=== PATIENT | female | born 1940 | race Caucasian/White ===

== ENCOUNTER 2016-12-08 09:30 | Outpatient (CLI) | payer MEDICARE ==
[~2016-12-08] VITALS: Ht 152.4 cm; Wt 79.4 kg
[~2016-12-08 09:30] MED LIST: ASPI81TA85 PO; BIOT1CAP2 PO; CENTTAB PO; CRAN250C2 PO; HYDR12.55 PO; LIDOCAINE 2% INJ 100 MG/5 ML SDV (FOR ANES.) As Ordered ONE; METO200T15 PO; NS 1,000 ML IV ONE; PRAV10TA PO; PROPOFOL 200 MG/20 ML VIAL As Ordered ONE; VITA100041 PO; VITATAB11 PO
--- NOTE | 2016-12-08 09:50 | ROOR ---
Patient Name: Doris Alvarez Procedure Date: 12/08/2016 9:27 AM Date of : 1940 Age: 76 Room: [facility] Gender: Female Note Status: Finalized Procedure: Total Colonoscopy to Cecum Indications: Screening for colorectal malignant neoplasm, Last colonoscopy: 2004 Providers: Zhao Powers MD Referring MD: ABBEY JEAN JR, MD Requesting Provider: Medicines: Monitored Anesthesia Care Complications: No immediate complications. Procedure: Pre-Anesthesia Assessment: - The heart rate, respiratory rate, oxygen saturations, blood pressure, adequacy of pulmonary ventilation, and response to care were monitored throughout the procedure. The Colonoscope was introduced through the anus and advanced to the cecum, identified by appendiceal orifice and ileocecal valve. The colonoscopy was performed without difficulty. The patient tolerated the procedure well. The quality of the bowel preparation was excellent. Findings: The perianal and digital rectal examinations were normal. Non-bleeding internal hemorrhoids were found during retroflexion. The hemorrhoids were small and Grade I (internal hemorrhoids that do not prolapse). Multiple small and large-mouthed diverticula were found in the recto-sigmoid colon, sigmoid colon and descending colon. The exam was otherwise without abnormality on direct and retroflexion views. Impression: - Non-bleeding internal hemorrhoids. - Diverticulosis in the recto-sigmoid colon, in the sigmoid colon and in the descending colon. - The examination was otherwise normal on direct and retroflexion views. - No specimens collected. - The exam was otherwise normal to the cecum. Recommendation: - Patient has a contact number available for emergencies. The signs and symptoms of potential delayed complications were discussed with the patient. Return to normal activities tomorrow. Written discharge instructions were provided to the patient. - High fiber diet. - Discharge patient to home. - Continue present medications. - Repeat colonoscopy for symptoms only. - Return to referring physician. - The findings and recommendations were discussed with the patient's family. Zhao Powers MD Zhao Powers MD 12/08/2016 9:50:20 AM This report has been signed electronically. Number of Addenda: 0 Note Initiated On: 12/08/2016 9:27 AM Estimated Blood Loss: Estimated blood loss: none.
[2016-12-08 10:10] VITALS: BP 145/79
== END 2016-12-08 10:20 | disposition home or self-care (01) ==
LOC: M OPP 09:30
PROVIDERS: ATTEND Internal Medicine Gastroenterology
DX: Z12.11 Encounter for screening for malignant neoplasm of colon (principal); K64.0 First degree hemorrhoids; K57.30 Diverticulosis of large intestine without perforation or abscess without bleeding; K21.9 Gastro-esophageal reflux disease without esophagitis; K62.5 Hemorrhage of anus and rectum; I10 Essential (primary) hypertension; E78.5 Hyperlipidemia, unspecified; M54.9 Dorsalgia, unspecified; Z78.0 Asymptomatic menopausal state; G47.8 Other sleep disorders; G47.30 Sleep apnea, unspecified; R06.83 Snoring; Z86.018 Personal history of other benign neoplasm; R26.89 Other abnormalities of gait and mobility; Z88.5 Allergy status to narcotic agent; Z79.82 Long term (current) use of aspirin; Z79.899 Other long term (current) drug therapy

== ENCOUNTER → 2017-12-27 | Outpatient (CLI) | payer MEDICARE ==
[~2017-12-27] MED LIST changes: -ASPI81TA85 PO; -BIOT1CAP2 PO; -CENTTAB PO; -CRAN250C2 PO; -HYDR12.55 PO; -LIDOCAINE 2% INJ 100 MG/5 ML SDV (FOR ANES.) As Ordered ONE; -METO200T15 PO; -NS 1,000 ML IV ONE; -PRAV10TA PO; +PROHANCE 279.3MG/ML 15ML VIAL (A9576) As Ordered; -PROPOFOL 200 MG/20 ML VIAL As Ordered ONE; -VITA100041 PO; -VITATAB11 PO
== END ==
LOC: M RAD 12:11
DX: D33.3 Benign neoplasm of cranial nerves (principal)
CPT/HCPCS: A9576

== ENCOUNTER → 2018-03-03 | Outpatient (REF) | payer MEDICARE | LOC: M LAB REF 12:54 | DX: N39.0 Urinary tract infection, site not specified (principal) | CPT/HCPCS: 87186 ==

== ENCOUNTER → 2019-01-05 | Outpatient (REF) | payer MEDICARE ==
[~2019-01-05] MED LIST changes: +ASPI81TA85 PO; +BIOT1CAP2 PO; +CENTTAB PO; +CRAN250C2 PO; +HYDR12.55 PO; +METO200T28 PO; +PRAV10TA4 PO; -PROHANCE 279.3MG/ML 15ML VIAL (A9576) As Ordered; +VITA-182 PO; +VITATAB11 PO
[2019-01-05 13:42] LABS: IONIZED CALCIUM 5.2 MG/DL (4.5-5.3)
[2019-01-05 13:57] LABS: TOTAL PROTEIN 7.2 GM/DL (6.4-8.2)
[2019-01-05 14:06] LABS: PTH INTACT 69.4 PG/ML (18.5-88.0)
[2019-01-10 11:36] LABS: ALBUMIN 4.51 GM/DL (3.29-5.55); ALBUMIN % 62.6 % (55.8-66.1); ALPHA-1-GLOBULIN % 4.1 % (2.9-4.9); ALPHA-2-GLOBULINS 0.76 GM/DL (0.42-0.99); ALPHA-2-GLOBULINS % 10.6 % (7.1-11.8); BETA-1-GLOBULINS 0.45 GM/DL (0.28-0.60); BETA-1-GLOBULINS % 6.3 % (4.7-7.2); BETA-2-GLOBULINS 0.39 GM/DL (0.19-0.55); BETA-2-GLOBULINS % 5.4 % (3.2-6.5); GAMMA GLOBULINS 0.79 GM/DL (0.65-1.58)
== END ==
LOC: M LAB REF 12:38
PROVIDERS: ATTEND Internal Medicine
DX: E83.52 Hypercalcemia (principal)